=== PATIENT | female | born 1995 | race Caucasian/White ===

== ENCOUNTER 2016-02-09 10:55 | Emergency (ER) | payer OTHER ==
[2016-02-09 11:59] VITALS: BP 156/102
--- NOTE | 2016-02-09 13:06 | UC ---
Abdominal Pain Female HPI - HPI Summary HPI Summary: 1) suprapubic pain, pressure, and urinary frequency. Denies dysuria. 2) Missed period in January, took preg tests over the weekend and 1 of 4 was positive. Last control was depo shot, stopped in July. Pt is . 3) Vomited once about 1 week ago, has been feeling nauseated and bloated every since, with a low appetite. States bowel movements have been 1-2 x per day and normal. Having occasional pain on R side of umbilicus, last night was very bad, none currently. Pt is vague about symptoms and unable to give precise information about timing and frequency of symptoms. - History of Current Complaint Chief Complaint: UCGeneralIllness Stated Complaint: ABD PAIN Time Seen by Provider: 02/09/16 12:31 Hx Obtained From: Patient Hx Last Menstrual Period: december 2015 Onset/Duration: Gradual Onset, Lasting Days Timing: Constant Severity Initially: Mild Severity Currently: Mild Location: Diffuse, Suprapubic Radiates: No Character: Unable to describe Aggravating Factor(s): Other: - seems worse as day goes on Alleviating Factor(s): Nothing Associated Signs and Symptoms: Positive: Urinary Symptoms - frequency, Decreased Appetite, Nausea, Vomiting Allergies/Adverse Reactions: Allergies Allergy/AdvReac Type Severity Reaction Status Date / Time No Known Allergies Allergy Unverified 02/09/16 11:59 PMH/Surg Hx/FS Hx/Imm Hx Respiratory History Of: Reports: Asthma - childhood Psychological History Of: Reports: Depression - Surgical History Surgical History: None - Family History Known Family History: Positive: Other - M of "stomach cancer" - Social History Occupation: Employed Part-time Lives: With Family Alcohol Use: None Substance Use Type: None Smoking Status (MU): Former Smoker Type: Cigarettes - Immunization History Most Recent Influenza Vaccination: 11/20/13 Most Recent Tetanus Shot: 02/10/14 Most Recent Pneumonia Vaccination: none Vaccination Up to Date: Yes Review of Systems Constitutional: Negative Skin: Negative Eyes: Negative ENT: Negative Respiratory: Negative Cardiovascular: Negative Gastrointestinal: Abdominal Pain, Vomiting Genitourinary: Frequency, Urgency Motor: Negative Neurovascular: Negative Musculoskeletal: Negative Neurological: Negative Psychological: Negative All Other Systems Reviewed And Are Negative: Yes Physical Exam Triage Information Reviewed: Yes Appearance: Well-Appearing, No Pain Distress, Obese Vital Signs: Initial Vital Signs Temp 97.4 F 02/09/16 11:54 Pulse 90 02/09/16 11:54 Resp 20 02/09/16 11:54 BP 156/102 02/09/16 11:54 Pulse Ox 100 02/09/16 11:54 Vital Signs Reviewed: Yes Eye Exam: Normal Eyes: Positive: Conjunctiva Clear ENT Exam: Normal ENT: Positive: Normal ENT inspection, Hearing grossly normal, Pharynx normal, TMs normal Dental Exam: Normal Neck exam: Normal Neck: Positive: Supple, Nontender, No Lymphadenopathy Respiratory Exam: Normal Respiratory: Positive: Chest non-tender, Lungs clear, Normal breath sounds, No respiratory distress, No accessory muscle use Cardiovascular Exam: Normal Cardiovascular: Positive: RRR, No Murmur Abdomen Description: Positive: Soft, Other: - negative Duron's sign. Negative : Nontender - suprapubic tenderness, CVA Tenderness (R), CVA Tenderness (L), Distended, Guarding, McBurney's Point Tenderness Bowel Sounds: Positive: Present Musculoskeletal Exam: Normal Neurological Exam: Normal Psychological: Positive: Other: - flat affect Skin Exam: Normal Abd Pain Female Course/Dx - Differential Dx/Diagnosis Provider Diagnoses: UTI. amenorrhea. dyspepsia Discharge - Discharge Plan Condition: Stable Disposition: HOME Prescriptions: Cephalexin CAP* [Keflex 500 CAP*] 500 mg PO TID #15 cap Omeprazole CAP* [Prilosec CAP* 20 MG] 20 mg PO BEDTIME #15 cap. Ondansetron ODT TAB* [Zofran Odt TAB*] 4 mg PO Q8H PRN #10 tab.odt PRN Reason: Nausea Patient Education Materials: Indigestion (ED), Urinary Tract Infection in Women (ED) Referrals: Oma Jacobsen MD [Primary Care Provider] - 2 Weeks Additional Instructions: As we discussed, you have some symptoms and signs of a UTI. We won't know for sure until the culture comes back -- if it is negative, you can stop the antibiotics. For your nausea and stomach symptoms, take the omeprazole every day and use zofran as needed for more severe nausea. Focus on eating frequent small meals, and avoid overly greasy, spicy, or sugary foods. Please see Dr. Jacobsen in 10-14 days for a follow-up visit. If your symptoms are not improved, she may want to try different treatment or testing.
== END 2016-02-09 13:16 | disposition home or self-care (01) ==
LOC: UCEAST 10:55
DX: N39.0 Urinary tract infection, site not specified (principal); N91.2 Amenorrhea, unspecified; R10.13 Epigastric pain; Z87.891 Personal history of nicotine dependence
CPT/HCPCS: 36415; 81002; 81025; 84702; 87086; 99212; G0463

== ENCOUNTER 2016-05-23 14:41 | Emergency (ER) | payer MEDICAID ==
[2016-05-23 14:56] VITALS: BP 142/86
--- NOTE | 2016-05-23 15:23 | UC ---
Minor Trauma HPI - HPI Summary HPI Summary: 21 yo female feel down 2 stairs today initially felt fine about 40 minutes after the fall she had some crampy lower abd pain that felt like menstrual cramps here period is a week late she requests a serum HCG currently no pain - History of Current Complaint Chief Complaint: UCAbdominalPain Stated Complaint: FALL-ABD PAIN/POSS PREG Time Seen by Provider: 05/23/16 15:16 Hx Obtained From: Patient Hx Last Menstrual Period: 04/10/16 Onset/Duration: Gradual Onset, Lasting Minutes Onset Of Pain: Post Accident Severity Initially: Mild Severity Currently: None Pain Intensity: 0 Pain Scale Used: 0-10 Numeric Mechanism Of Injury: Fall From A Standing Position Aggravating Factor(s): Nothing Alleviating Factor(s): Nothing Associated Signs And Symptoms: Negative: Loss Of Consciousness, Ecchymosis, Swelling - Allergies/Home Medications Allergies/Adverse Reactions: Allergies Allergy/AdvReac Type Severity Reaction Status Date / Time No Known Allergies Allergy Verified 05/23/16 14:55 Home Medications: Home Medications NK [No Home Medications Reported] 05/23/16 [History Confirmed 05/23/16] PMH/Surg Hx/FS Hx/Imm Hx Previously Healthy: Yes Endocrine History Of: Denies: Diabetes, Thyroid Disease Cardiovascular History Of: Denies: Cardiac Disorders, Hypertension Respiratory History Of: Reports: Asthma - childhood Denies: COPD GI/ History Of: Denies: Ulcer Psychological History Of: Reports: Depression - Surgical History Surgical History: None - Family History Known Family History: Positive: Cardiac Disease, Hypertension, Diabetes, Other - M of "stomach cancer" - Social History Alcohol Use: None Substance Use Type: None Smoking Status (MU): Heavy Every Day Tobacco Smoker Type: Cigarettes Amount Used/How Often: 1ppd or less Have You Smoked in the Last Year: Yes - Immunization History Most Recent Influenza Vaccination: 11/20/13 Most Recent Tetanus Shot: 02/10/14 Most Recent Pneumonia Vaccination: none Vaccination Up to Date: Yes Review of Systems Constitutional: Negative Skin: Negative Eyes: Negative ENT: Negative Respiratory: Negative Cardiovascular: Negative Gastrointestinal: Abdominal Pain - intermittent Genitourinary: Negative Motor: Negative Neurovascular: Negative Musculoskeletal: Negative Neurological: Negative Psychological: Negative All Other Systems Reviewed And Are Negative: Yes Physical Exam Triage Information Reviewed: Yes Appearance: Well-Appearing, No Pain Distress, Well-Nourished Vital Signs: Initial Vital Signs Temp 97.6 F 05/23/16 14:46 Pulse 70 05/23/16 14:46 Resp 16 05/23/16 14:46 BP 142/86 05/23/16 14:46 Pulse Ox 100 05/23/16 14:46 Vital Signs Reviewed: Yes Eyes: Positive: Conjunctiva Clear ENT: Positive: Hearing grossly normal Dental: Negative: Gross Decay/Caries @, Dental Fracture @ Neck: Positive: Supple, Nontender, No Lymphadenopathy Respiratory: Positive: Lungs clear, Normal breath sounds, No respiratory distress Cardiovascular: Positive: RRR, No Murmur Abdomen Description: Positive: Nontender, No Organomegaly, Soft. Negative: CVA Tenderness (R), CVA Tenderness (L), Distended, Hepatomegaly, Peritoneal Signs, Pulsatile Mass, Splenomegaly Musculoskeletal: Positive: ROM Intact, No Edema Neurological: Positive: Alert, Muscle Tone Normal Psychological Exam: Normal Skin Exam: Normal Minor Trauma Course/Dx - Differential Dx/Diagnosis Provider Diagnoses: fall. currently no abdominal pain. missed period Discharge - Discharge Plan Condition: Stable Disposition: HOME Patient Education Materials: Abdominal Pain (ED) Referrals: Oma Kruse MD [Primary Care Provider] - 2 Weeks (your BP is high and needs rechecking) Additional Instructions: recheck for new or worsening symptoms recheck in 1-2 days if not completely better
== END 2016-05-23 15:46 | disposition home or self-care (01) ==
LOC: UCEAST 14:41
DX: R10.9 Unspecified abdominal pain (principal); N92.6 Irregular menstruation, unspecified
CPT/HCPCS: 36415; 81003; 84702; 87086; 99211; G0463

== ENCOUNTER 2016-11-05 13:20 | Emergency (ER) | payer SELFPAY ==
[2016-11-05] MEDS ORDERED: Metoclopramide IV* 5 MG/ML 2 ML VIAL IV ONE (14:06)
[2016-11-05 14:25] LABS: Hematocrit 43 % (35-47); Hemoglobin 14.7 g/dl (12.0-16.0); Mean Corpuscular HGB Conc 34 g/dl (31-36); Mean Corpuscular Hemoglobin 29 pg (27-31); Mean Corpuscular Volume 86 fL (80-97); Mean Platelet Volume 7 um3 (7.4-10.4); Red Blood Count 5.03 10^6/ul (4.0-5.4); Red Cell Distribution Width 13 % (10.5-15); White Blood Count 9.9 10^3/ul (3.5-10.8)
--- NOTE | 2016-11-05 14:32 | ED ---
- HPI Summary HPI Summary: 21F presents with nausea for past week and pelvic pain since yesterday. blood type a+. . does not know how many weeks is at as has had had period for 2 years after due to being on depo. stopped depo a year ago. denies any vaginal bleeding or discharge. Does not have obgyn as will not see here due to age. She admits to decrease in appetite and vomiting. She has history of hemorrhoids. She denies any diarrhea or constipation. she denies any pain with urination. no previous abdominal surgeries. she took 8 at home tests that all came back positive. she denies any fevers. - History of Current Complaint Chief Complaint: EDAbdPain Stated Complaint: ABD PAIN/UNABLE TO EAT Time Seen by Provider: 11/05/16 13:40 Pain Intensity: 4 - Assessment SAB: 0 IEA: 0 - Additional Pertinent History Maternal Blood Type and Rh: A Positive - Allergies/Home Medications Allergies/Adverse Reactions: Allergies Allergy/AdvReac Type Severity Reaction Status Date / Time No Known Allergies Allergy Verified 11/05/16 13:25 PMH/Surg Hx/FS Hx/Imm Hx Endocrine/Hematology History: Denies: Hx Diabetes, Hx Thyroid Disease Cardiovascular History: Denies: Hx Hypertension Respiratory History: Reports: Hx Asthma - childhood Denies: Hx Chronic Obstructive Pulmonary Disease (COPD) GI History: Denies: Hx Ulcer Psychiatric History: Reports: Hx Depression Infectious Disease History: No Infectious Disease History: Reports: Hx of Known/Suspected MRSA - arm - 4-5 yrs ago Denies: Hx Clostridium Difficile, Hx Hepatitis, Hx Human Immunodeficiency Virus (HIV), Hx Shingles, Hx Tuberculosis, Hx Known/Suspected VRE, Hx Known/ Suspected VRSA, History Other Infectious Disease, Traveled Outside the [place] in Last 30 Days - Family History Known Family History: Positive: Cardiac Disease, Hypertension, Diabetes, Other - M of "stomach cancer" - Social History Alcohol Use: None Substance Use Type: Reports: None Smoking Status (MU): Light Every Day Tobacco Smoker Type: Cigarettes Amount Used/How Often: 1ppd or less Have You Smoked in the Last Year: Yes Review of Systems Negative: Fever Negative: Cough Positive: Abdominal Pain, Vomiting, Nausea. Negative: Diarrhea All Other Systems Reviewed And Are Negative: Yes Physical Exam - Physical Exam Triage Information Reviewed: Yes Vital Signs Reviewed: Yes Appearance: Positive: Well-Appearing Skin: Positive: Warm, Dry Head/Face: Positive: Normal Head/Face Inspection Eyes: Positive: Normal, EOMI, MERCY, Conjunctiva Clear ENT: Positive: Normal ENT inspection, Pharynx normal, TMs normal Respiratory/Lung Sounds: Positive: Clear to Auscultation, Breath Sounds Present Cardiovascular: Positive: Normal, RRR Abdomen Description: Positive: Nontender, Soft Bowel Sounds: Positive: Present Musculoskeletal: Positive: Normal Neurological: Positive: Normal Diagnostics - Vital Signs Vital Signs Temp Pulse Resp BP Pulse Ox 11/05/16 13:22 97.4 F 67 14 141/71 100 - Laboratory Lab Results: Lab Results 11/05/16 Range/Units 14:14 WBC 9.9 (3.5-10.8) 10^3/ul RBC 5.03 (4.0-5.4) 10^6/ul Hgb 14.7 (12.0-16.0) g/dl Hct 43 (35-47) % MCV 86 (80-97) fL MCH 29 (27-31) pg MCHC 34 (31-36) g/dl RDW 13 (10.5-15) % Plt Count 172 (150-450) 10^3/ul MPV 7 L (7.4-10.4) um3 Neut % (Auto) 57.6 (38-83) % Lymph % (Auto) 34.4 (25-47) % [place] % (Auto) 6.6 (1-9) % Eos % (Auto) 0.8 (0-6) % Baso % (Auto) 0.6 (0-2) % Absolute Neuts (auto) 5.7 (1.5-7.7) 10^3/ul Absolute Lymphs (auto) 3.4 (1.0-4.8) 10^3/ul Absolute Monos (auto) 0.6 (0-0.8) 10^3/ul Absolute Eos (auto) 0.1 (0-0.6) 10^3/ul Absolute Basos (auto) 0.1 (0-0.2) 10^3/ul Absolute Nucleated RBC 0 10^3/ul Nucleated RBC % 0 Result Diagrams: 11/05/16 14:14 11/05/16 14:14 Lab Statement: Any lab studies that have been ordered have been reviewed, and results considered in the medical decision making process. - Ultrasound No standard instances Ultrasound Interpretation: Positive (See Comments) - IMPRESSION: 1. Intrauterine gestational sac at 5 weeks 4 days with identification of a yolk sac but without confirmation of pole. 2. Small perigestational bleed. 3. Thickened and complex echogenic material within the endometrial cavity of indeterminate significance (see above). 4. Suggest serial ultrasound follow-up and serial beta hCG evaluation for above findings. Ultrasound Interpretation Completed By: Radiologist Course/Dx - Course Course Of Treatment: 21F presents with nausea for past week and pelvic pain since yesterday. blood type a+. . does not know how many weeks is at as has had had period for 2 years after due to being on depo. stopped depo a year ago. denies any vaginal bleeding or discharge. Does not have obgyn as will not see here due to age. She admits to decrease in appetite and vomiting. She has history of hemorrhoids. She denies any diarrhea or constipation. she denies any pain with urination. no previous abdominal surgeries. she took 8 at home tests that all came back positive. she denies any fevers. on exam nontender abdomen. gave reglan and feeling better. wbc normal. u/a normal. hcg 9000. u/s shows gestional sac without pole with thicken and complex echogenic material could be molar . explained results with patient and that needs to follow up with obgyn for repeat hcg and u/s. gave medication for nausea. patient understands and agrees with plan. - Differential Diagnosis/HQI/PQRI: Spontaneous , Intrauterine , Other: - molar - Diagnoses Provider Diagnoses: Discharge - Discharge Plan Condition: Good Disposition: HOME Prescriptions: Doxylamine/Pyridoxine(NF) [Diclegis (NF)] 1 tab PO BEDTIME #20 tab Metoclopramide TAB* [Reglan TAB*] 5 mg PO Q6H PRN #15 tab PRN Reason: Nausea Patient Education Materials: First Trimester (ED) Referrals: Oma Kruse MD [Primary Care Provider] - Elisha Cotton MD [Medical Doctor] - Arnel London MD [Medical Doctor] - Additional Instructions: Follow up with OBGYN as will need repeat HCG level drawn to trend You have the potential for a miscarriage or a molar with this Take dicelgis one tablet at night if nausea not improving take one tablet in morning too Take reglan every 6 hours as needed for break through nausea Return to ED if develop severe abdominal pain, fever, severe bleeding with symptoms such as lightheadedness or any new or worsening symptoms
[2016-11-05 14:37] LABS: Urine Bilirubin Negative (Negative); Urine Glucose Negative (Negative); Urine Nitrite Negative (Negative)
[2016-11-05 14:47] LABS: Albumin 4.3 g/dL (3.2-5.2); BUN/Creatinine Ratio 14.5 (8-20); Calcium 9.6 mg/dL (8.6-10.3); EGFR African American 157.8 (>60); EGFR Non-African American 122.7 (>60); Globulin 3.6 g/dL (2-4); Potassium 3.9 mmol/L (3.5-5.0); Total Bilirubin 0.3 mg/dL (0.2-1.0); Total Protein 7.9 g/dL (6.4-8.9)
--- NOTE | 2016-11-05 16:02 | RAD ---
INDICATION: Early COMPARISON: None TECHNIQUE: Transvaginal scans were obtained for evaluation. FINDINGS: There is an intrauterine gestational sac with identification of a yolk sac but no pole. The gestational sac size corresponds to a 5 week 4 day gestation. There is a small. Gestational hemorrhage measuring approximately 0.8 x 0.3 cm. There are prominent echoes within the endometrial cavity. Doppler interrogation suggests some flow but this may largely represent hemorrhage. However, in the appropriate setting a molar would be a differential consideration. Suggest follow-up imaging and correlation with serial beta-hCGs. Imaging of the adnexal regions demonstrates normal ovaries. The right ovary measures 2.2 x 1.5 a 2.7 cm and left 3.6 x 2.1 x 2.9 cm. There is a presumed left-sided corpus luteal cyst measuring 1.7 cm IMPRESSION: 1. Intrauterine gestational sac at 5 weeks 4 days with identification of a yolk sac but without confirmation of pole. 2. Small perigestational bleed. 3. Thickened and complex echogenic material within the endometrial cavity of indeterminate significance (see above). 4. Suggest serial ultrasound follow-up and serial beta hCG evaluation for above findings.
[2016-11-05 16:24] VITALS: BP 107/60
== END 2016-11-05 16:39 | disposition home or self-care (01) ==
LOC: ED 13:20
DX: Z34.91 Encounter for supervision of normal pregnancy, unspecified, first trimester (principal); R10.2 Pelvic and perineal pain; F17.210 Nicotine dependence, cigarettes, uncomplicated; R11.2 Nausea with vomiting, unspecified
CPT/HCPCS: 36415; 76817; 80053; 81003; 83690; 84702; 85025; 86141; 96374; 99283; J2765

== ENCOUNTER 2017-06-29 08:40 | Inpatient (IN) | payer OTHER ==
[2017-06-29] MEDS ORDERED: Misoprostol TAB* 100 MCG VAGINAL ONE (09:35)
[2017-06-29] MEDS ORDERED: Misoprostol TAB* 100 MCG ONE (09:42)
[2017-06-29 11:22] LABS: ABS Basophils 0 10^3/ul (0-0.2); ABS Eosinophils 0 10^3/ul (0-0.6); ABS Lymphocytes 2.6 10^3/ul (1.0-4.8); ABS Monocytes 0.5 10^3/ul (0-0.8); ABS Neutrophils 5.8 10^3/ul (1.5-7.7); ABS Nucleated RBC 0 10^3/ul; Eosinophil % 0.5 % (0-6); Hematocrit 36 % (35-47); Hemoglobin 12.4 g/dl (12.0-16.0); Lymphocyte % 29.1 % (25-47); Mean Corpuscular HGB Conc 34 g/dl (31-36); Mean Corpuscular Hemoglobin 29 pg (27-31); Mean Corpuscular Volume 84 fL (80-97); Mean Platelet Volume 8.3 um3 (7.4-10.4); Nucleated Red Blood Cells % 0; Platelet Count 110 10^3/ul (150-450); Red Blood Count 4.31 10^6/ul (4.0-5.4); Red Cell Distribution Width 14 % (10.5-15); White Blood Count 9.1 10^3/ul (3.5-10.8)
--- NOTE | 2017-06-29 11:48 | HP ---
General Information - General Information Maternal Age: 22 Grav: 2 Para: 1 SAB: 0 IEA: 0 Estimated Due Date: 07/06/17 Determined By: Early Ultrasound Gestational Age in Weeks and Days: 39 Weeks and 0 Days Maternal Blood Type and Rh: A Positive - Results this Serology/RPR Result: Non-Reactive Rubella Result: Immune HBsAg Result: Negative HIV Result: Negative GBS Culture Result: Positive Past Medical History Delivery History: Hx Complicated Vaginal Delivery - hemorrhage Pertinent Past Medical History: See Records - asthma (no meds) Pertinent Past Surgical History: None Pertinent Family History: Non-Contributory - Antepartal Records Antepartal Records: Reviewed, Complicated by: - GDMA2 on insulin (4U NPH AM), mild thrombocytopenia Review of Systems Constitutional: Comfortable CV Complaint: No Respiratory: Shortness of Breath: No Gastrointestinal: No Nausea/Vomiting Genitourinary: No Dysuria, No Bleeding, No Leaking Fluid Musculoskeletal: No Complaint Neurological: No Headache Movement: Normal Exam Allergies/Adverse Reactions: Allergies No Known Allergies Allergy (Verified 11/05/16 13:25) 118/68, T97.5, P105, R18 Lab Values - Entire Visit: Laboratory Tests 06/29/17 06/29/17 10:10 11:09 WBC 9.1 RBC 4.31 Hgb 12.4 Hct 36 MCV 84 MCH 29 MCHC 34 RDW 14 Plt Count 110 L MPV 8.3 Neut % (Auto) 64.1 Lymph % (Auto) 29.1 [place] % (Auto) 5.8 Eos % (Auto) 0.5 Baso % (Auto) 0.5 Absolute Neuts (auto) 5.8 Absolute Lymphs (auto) 2.6 Absolute Monos (auto) 0.5 Absolute Eos (auto) 0 Absolute Basos (auto) 0 Absolute Nucleated RBC 0 Nucleated RBC % 0 Blood Type A Positive Antibody Screen Negative - Measurements Height: 5 ft 2 in Weight: 208 lb Weight in lbs: 208 Body Mass Index (BMI): 38.0 Pre- Weight: 156 lb Weight Gained This : 52 lbs and 0 ozs - Exam Abdomen: No Upper Quadrant Pain Breast: Breast Exam Deferred Heart: Normal Rhythm/Heart Sounds Lungs: Clear Bilaterally - Abdominal Exam Abdomen Exam: Non-Tender, Fundal Height Consistent with Dates - Ultrasound/Biophysical Profile Ultrasound Status: Not Done Targeted Exam Findings See L&D Outpatient Visit Provider Note for Findings: N/A Cervical Exam: 1cm Effacement: 50% Station: -2 Presenting Part: Vertex Membrane Status: Intact EFM Findings - External Monitor Findings Baseline Heart Rate: 130 External Monitor Findings: Accelerations Present, No Pattern of Variable or Late Decelerations, Variability Moderate Contractions: Irregular, Mild Contraction Frequency: Q6-10 Assessment/Plan - Reason for Visit Reason for Visit: 22yo at 39 wks with GDMA2, treated with small amt of NPH (4U QAM) here for induction of labor. - Obstetrical Risk Factors Obstetrical Risk Factors: Gestational Diabetes - Plan Plan: Induction - Plan to start with vaginal misoprostol. Will check BGs periodically and treat as needed.
[2017-06-29] MEDS ORDERED: Penicillin G Potassium IV* 5,000,000 UNITS in NS 0.9% 100 ML* 100 ML IVPB ONE (17:45)
[2017-06-29] MEDS: Oxytocin in LR* 20 UNITS/1,000 ML BAG IVPB SCH (17:59)
[2017-06-29] MEDS ORDERED: OBEPIDURAL* 250 ML EPIDURAL ONE (21:40)
[2017-06-29] MEDS ORDERED: fentaNYL* 50 MCG/ML 2 ML VIAL (100 MCG VIAL) ONE (21:54)
[2017-06-29] MEDS ORDERED: Sodium Citrate/Citric Acid* 15 ML UDC PO PRN (22:35)
[2017-06-29] MEDS ORDERED: Famotidine TAB* 20 MG PO PRN (22:35)
[2017-06-29] MEDS ORDERED: Phenylephrine IV* 40 MCG/ML 10 ML SYRINGE IV PUSH PRN ×2 (22:35)
[2017-06-29] MEDS ORDERED: OBEPIDURAL* 250 ML EPIDURAL SCH (23:00)
[2017-06-30] MEDS: Penicillin G Potassium IV* 2,500,000 UNITS in NS 0.9% 100 ML* 100 ML IVPB SCH ×5 (04:11→16:16)
[2017-06-30] MEDS: Oxytocin in LR* 20 UNITS/1,000 ML BAG IVPB SCH (13:13)
[2017-06-30] MEDS ORDERED: OBEPIDURAL* 250 ML EPIDURAL ONE (14:07)
[2017-06-30] MEDS ORDERED: Dibucaine 1% 28.35 GM TUBE PR PRN (19:07)
[2017-06-30] MEDS ORDERED: Varicella Virus Vaccine Live* 0.5 ML VIAL SUBCUT ONE (19:07)
[2017-06-30] MEDS ORDERED: Witch Hazel PAD* JAR TOPICAL PRN (19:07)
[2017-06-30] MEDS ORDERED: Glycerin ADULT SUPP PR PRN (19:07)
[2017-06-30] MEDS ORDERED: Oxytocin in LR* 20 UNITS/1,000 ML BAG IVPB SCH (20:00)
[2017-06-30] MEDS: Ibuprofen TAB* 600 MG PO PRN (20:08)
[2017-07-01] MEDS: Acetaminophen TAB* 325 MG PO PRN ×2 (00:25→06:03)
[2017-07-01] MEDS: Ibuprofen TAB* 600 MG PO PRN ×2 (03:05→09:43)
[2017-07-01 05:41] LABS: ABS Basophils 0.1 10^3/ul (0-0.2); ABS Eosinophils 0.1 10^3/ul (0-0.6); ABS Lymphocytes 3.6 10^3/ul (1.0-4.8); ABS Monocytes 0.8 10^3/ul (0-0.8); ABS Nucleated RBC 0 10^3/ul; Eosinophil % 0.6 % (0-6); Hematocrit 34 % (35-47); Hemoglobin 11.4 g/dl (12.0-16.0); Lymphocyte % 31.2 % (25-47); Mean Corpuscular HGB Conc 34 g/dl (31-36); Mean Corpuscular Hemoglobin 28 pg (27-31); Mean Corpuscular Volume 85 fL (80-97); Mean Platelet Volume 8.3 um3 (7.4-10.4); Nucleated Red Blood Cells % 0; Platelet Count 104 10^3/ul (150-450); Red Blood Count 4.02 10^6/ul (4.0-5.4); Red Cell Distribution Width 14 % (10.5-15); White Blood Count 11.5 10^3/ul (3.5-10.8)
[2017-07-01] MEDS ORDERED: Ferrous Gluconate TAB* 324 MG TAB PO SCH (09:00)
[2017-07-01] MEDS ORDERED: Ibuprofen TAB* 600 MG ONE (09:39)
[2017-07-01] MEDS: Docusate CAP* 100 MG PO SCH ×4 (09:43→21:28)
[2017-07-01] MEDS: Simethicone TAB* 80 MG TAB.CHEW PO SCH (16:20)
[2017-07-02 08:07] VITALS: BP 130/81
[2017-07-02] MEDS: Docusate CAP* 100 MG PO SCH (10:56)
== END 2017-07-02 11:09 | disposition home or self-care (01) | DRG 560 ==
LOC: MCHOBOUT 08:40 → MCHOB 09:41
PROVIDERS: ADMIT Obstetrics & Gynecology; ATTEND Obstetrics & Gynecology
PROC: 10E0XZZ Delivery of Products of Conception, External Approach (ICD-10-PCS; principal; 2017-06-30)
PROC: 3E033VJ Introduction of Other Hormone into Peripheral Vein, Percutaneous Approach (ICD-10-PCS; 2017-06-30)
PROC: 10907ZC Drainage of Amniotic Fluid, Therapeutic from Products of Conception, Via Natural or Artificial Opening (ICD-10-PCS; 2017-06-30)
PROC: 0KQM0ZZ Repair Perineum Muscle, Open Approach (ICD-10-PCS; 2017-06-30)
DX: O24.429 Gestational diabetes mellitus in childbirth, unspecified control (principal); O99.12 Other diseases of the blood and blood-forming organs and certain disorders involving the immune mechanism complicating childbirth; O99.824 Streptococcus B carrier state complicating childbirth; O70.1 Second degree perineal laceration during delivery; O69.81X0 Labor and delivery complicated by cord around neck, without compression, not applicable or unspecified; Z3A.39 39 weeks gestation of pregnancy; Z37.0 Single live birth
CPT/HCPCS: 36415; 85025; 86850; 86900; 86901; A9270-GY; J2540; J3010; S0191

== ENCOUNTER 2018-03-18 15:07 | Emergency (ER) | payer BC, OTHER ==
[2018-03-18 15:20] VITALS: BP 132/94
--- NOTE | 2018-03-18 15:57 | UC ---
Throat Pain/Nasal Crow HPI - HPI Summary HPI Summary: started 1 weeks ago with URI symps. yesterday started to have ST and fever. - History of Current Complaint Chief Complaint: UCGeneralIllness Stated Complaint: THROAT PAIN RESP Time Seen by Provider: 03/18/18 15:36 Hx Obtained From: Patient Hx Last Menstrual Period: unsure, not , post since 2018 ?: No Onset/Duration: Gradual Onset Severity: Moderate Pain Intensity: 6 Cough: Sputum Appears - green Associated Signs & Symptoms: Positive: Fever - Allergies/Home Medications Allergies/Adverse Reactions: Allergies Allergy/AdvReac Type Severity Reaction Status Date / Time amoxicillin Allergy Mild Rash Verified 03/18/18 15:20 PMH/Surg Hx/FS Hx/Imm Hx Previously Healthy: Yes - Surgical History Surgical History: None - Family History Known Family History: Positive: Cardiac Disease, Hypertension, Diabetes, Other - M of "stomach cancer" - Social History Occupation: Employed Full-time - school Lives: With Family Alcohol Use: None Substance Use Type: None Smoking Status (MU): Light Every Day Tobacco Smoker Type: Cigarettes Amount Used/How Often: 1ppd or less Have You Smoked in the Last Year: Yes Household Exposure Type: Cigarettes Cessation Counseling: Patient Advised to Stop - Immunization History Most Recent Influenza Vaccination: 11/20/13 Most Recent Tetanus Shot: 02/10/14 Most Recent Pneumonia Vaccination: none Vaccination Up to Date: Yes Review of Systems All Other Systems Reviewed And Are Negative: Yes Constitutional: Positive: Fatigue Eyes: Positive: Negative ENT: Positive: Sore Throat, Sinus Congestion. Negative: Ear Ache Respiratory: Positive: Cough Cardiovascular: Positive: Negative Gastrointestinal: Positive: Negative Neurological: Positive: Negative. Negative: Headache Psychological: Positive: Negative Is Patient Immunocompromised?: No Physical Exam Triage Information Reviewed: Yes Appearance: Well-Appearing, No Pain Distress, Obese Vital Signs: Initial Vital Signs Temp 98.2 F 03/18/18 15:13 Pulse 86 03/18/18 15:13 Resp 16 03/18/18 15:13 BP 132/94 03/18/18 15:13 Pulse Ox 99 03/18/18 15:13 Vital Signs Reviewed: Yes Eyes: Positive: Conjunctiva Clear ENT: Positive: Pharyngeal erythema, Nasal congestion, TMs normal Neck exam: Normal Respiratory Exam: Normal Respiratory: Positive: Lungs clear Cardiovascular Exam: Normal Cardiovascular: Positive: RRR Neurological Exam: Normal Psychological Exam: Normal Skin Exam: Normal Skin: Negative: Rashes Throat Pain/Nasal Course/Dx - Differential Dx/Diagnosis Differential Diagnosis/HQI/PQRI: Influenza, Pharyngitis, Sinusitis, Tonsillitis , URI Provider Diagnosis: URI (upper respiratory infection) Discharge - Sign-Out/Discharge Documenting (check all that apply): Patient Departure All imaging exams completed and their final reports reviewed: No Studies - Discharge Plan Condition: Good Disposition: HOME Prescriptions: Azithromycin TAB* [Zithromax TAB (Z-YOLANDE) 250 mg #6 tabs] 2 tab PO .TODAY, THEN 1 DAILY #1 yolande Azithromycin TAB* [Zithromax TAB (Z-YOLANDE) 250 mg #6 tabs] 2 tab PO .TODAY, THEN 1 DAILY #1 yolande Patient Education Materials: Pharyngitis (ED) Forms: *Work Release Referrals: Oma Kruse MD [Primary Care Provider] - 2 Days (if no better) Additional Instructions: rest, drink plenty of fluids take meds as prescribed - Billing Disposition and Condition Condition: GOOD Disposition: Home
== END 2018-03-18 16:10 | disposition home or self-care (01) ==
LOC: UCEAST 15:07
DX: J06.9 Acute upper respiratory infection, unspecified (principal); F17.210 Nicotine dependence, cigarettes, uncomplicated; Z88.0 Allergy status to penicillin
CPT/HCPCS: 87651; 99212; G0463

== ENCOUNTER 2018-04-26 17:47 | Emergency (ER) | payer BC, OTHER ==
--- NOTE | 2018-04-26 17:57 | UC ---
Throat Pain/Nasal Crow HPI - HPI Summary HPI Summary: 23 y/o female presents to the urgent care c/o sore throat, low grade fever, nasal congestion w/ clear nasal discharge for the past 4 days. Pt had fever of 101F yesterday. She has taken Tylenol PO and Ibuprofen PO to alleviate symptoms. Pain w/ swallowing is 2/. However, this morning when she woke up sore throat was worse like 8/. She was seen here for URI in 03/18 and strep was negative. Pt denies SOB, respiratory distress, difficulty breathing, abdominal pain, chest pain, N/V/D, dizziness. Pt is UTD w/ all vaccines for her age. - History of Current Complaint Stated Complaint: SORE THROAT Time Seen by Provider: 04/26/18 17:55 Hx Obtained From: Patient Hx Last Menstrual Period: unsure, not , post since 2018 ?: No Onset/Duration: Gradual Onset, Lasting Days - 4 days, Still Present, Worse Since - today Severity: Moderate Pain Intensity: 2 Pain Scale Used: 0-10 Numeric Cough: Nonproductive Associated Signs & Symptoms: Positive: Dysphagia - mild, Sinus Discomfort, Nasal Discharge, Fever. Negative: Drooling, Wheezing - Epiglottits Risk Factors Epiglottis Risk Factors: Negative - Allergies/Home Medications Allergies/Adverse Reactions: Allergies Allergy/AdvReac Type Severity Reaction Status Date / Time amoxicillin Allergy Mild Rash Verified 04/26/18 18:07 PMH/Surg Hx/FS Hx/Imm Hx Previously Healthy: Yes Respiratory History: Asthma - Surgical History Surgical History: None - Family History Known Family History: Positive: Cardiac Disease, Hypertension, Diabetes, Other - M of "stomach cancer" - Social History Occupation: Employed Full-time Lives: With Family Alcohol Use: None Substance Use Type: None Smoking Status (MU): Light Every Day Tobacco Smoker Type: Cigarettes Amount Used/How Often: 1ppd or less Have You Smoked in the Last Year: Yes Household Exposure Type: Cigarettes - Immunization History Most Recent Influenza Vaccination: 11/20/13 Most Recent Tetanus Shot: 02/10/14 Most Recent Pneumonia Vaccination: none Vaccination Up to Date: Yes Review of Systems All Other Systems Reviewed And Are Negative: Yes Constitutional: Positive: Fever Skin: Positive: Negative Eyes: Positive: Negative ENT: Positive: Sore Throat, Nasal Discharge - clear, Sinus Congestion Respiratory: Positive: Cough - dry Cardiovascular: Positive: Negative Gastrointestinal: Positive: Negative Genitourinary: Positive: Negative Motor: Positive: Negative Neurovascular: Positive: Negative Musculoskeletal: Positive: Negative Neurological: Positive: Negative Psychological: Positive: Negative Is Patient Immunocompromised?: No Physical Exam - Summary Physical Exam Summary: VITAL SIGNS: Reviewed. GENERAL: Patient is a well developed and nourished female who is sitting comfortable in the examining table. Patient is not in any acute respiratory distress. HEAD AND FACE: No signs of trauma. No ecchymosis, hematomas or skull depressions. No sinus tenderness. EYES: PERRLA, EOMI x 2, No injected conjunctiva, no nystagmus. No photophobia. EARS: Hearing grossly intact. Ear canals and tympanic membranes are within normal limits. MOUTH: Positive pharynx with erythema, exudates, palatal petechiae. B/L tonsillar enlargement with no exudate. Uvula in midline. NECK: Supple, trachea is midline, Positive anterior cervical lymphadenopathy, no JVD, no carotid bruit, no c-spine tenderness, neck with full ROM. No meningeal signs, no Kernig's or brudzinskis signs. CHEST: Symmetric, no tenderness at palpation LUNGS: Clear to auscultation bilaterally. No wheezing or crackles. CVS: Regular rate and rhythm, S1 and S2 present, no murmurs or gallops appreciated. ABDOMEN: Soft, non-tender. No signs of distention. No rebound no guarding, and no masses palpated. Bowel sounds are normal. EXTREMITIES: FROM in all major joints, no edema, no cyanosis or clubbing. NEURO: Alert and oriented x 3. No acute neurological deficits. Speech is normal and follows commands. SKIN: Dry and warm Triage Information Reviewed: Yes Throat Pain/Nasal Course/Dx - Course Course Of Treatment: 23 y/o female presents to the urgent care c/o sore throat, low grade fever, nasal congestion w/ clear nasal discharge for the past 4 days. Pt had fever of 101F yesterday. She has taken Tylenol PO and Ibuprofen PO to alleviate symptoms. Pain w/ swallowing is 2/10. However, this morning when she woke up sore throat was worse like 8/10. She was seen here for URI in 03/18 and strep was negative. Pt denies SOB,wheezing, respiratory distress, difficulty breathing , abdominal pain, chest pain, N/V/D, dizziness. Pt is UTD w/ all vaccines for her age. Pt is PCN allergic and PMHX of asthma. Pt w/ pharyngitis on examination. Rapid strep: negative. Influenza A&b: negative. Monospot, CBc and throat culture ordered and sent to lab to r/o any abnormality. Pt will be notified of results. Pt Rx Prednisone and Ibuprofen PO of pain and swelling. Advised on hand washing to avoid spreading. Pt advised to rest, eat well and avoid strenuous exercise. Strongly advised if swelling worsen despite medications to go immediately to the ER for further management.If symptoms do not improve, advised to return to the urgent care or f/u with her PCP for further evaluation and treatment. Pt understood and agreed w/ plan of care - Differential Dx/Diagnosis Differential Diagnosis/HQI/PQRI: Influenza, Laryngitis, Mononucleosis, Otitis Media, Peritonsillar Abscess, Pharyngitis, Tonsillitis, URI Provider Diagnosis: Acute viral pharyngitis Discharge - Sign-Out/Discharge Documenting (check all that apply): Patient Departure - D/C home All imaging exams completed and their final reports reviewed: No Studies - Discharge Plan Condition: Stable Disposition: HOME Prescriptions: Ibuprofen TAB* [Motrin TAB* 600 MG] 600 mg PO Q6H PRN #30 tab PRN Reason: Sore Throat predniSONE TAB* [Deltasone 20 MG TAB*] 20 mg PO DAILY #11 tab Patient Education Materials: Pharyngitis (ED) Referrals: Lore Oviedo MD [Primary Care Provider] - Additional Instructions: 1- Please take Prednsine PO taper dose as directed to alleviate swelling and symptoms. 2- Rapid strep negative. Monospot and throat culture was send to lab to r/o any abnormality. You will be notified of the results for further management 3-Please take ibuprofen PO q6-8hrs prn as instructed after meals to alleviate pain and swelling. Increase fluid intake, eat well, rest and avoid strenuous exercise 4-If symptoms do not improve or worsen please return to the urgent care or f/u with your PCP for further evaluation and treatment. 5- If your symptoms worsen and you develop hoarseness, fever, or difficulty breathing, drooling please go immediately to the ER for further management - Billing Disposition and Condition Condition: STABLE Disposition: Home
[2018-04-26 18:17] VITALS: BP 129/85
[2018-04-27 11:22] LABS: ABS Basophils 0.1 10^3/ul (0-0.2); ABS Eosinophils 0.1 10^3/ul (0-0.6); ABS Lymphocytes 2.9 10^3/ul (1.0-4.8); ABS Monocytes 0.6 10^3/ul (0-0.8); ABS Nucleated RBC 0 10^3/ul; Eosinophil % 1.7 %; Hematocrit 41 % (33-41); Hemoglobin 13.7 g/dL (12.0-16.0); Lymphocyte % 37.6 %; Mean Corpuscular HGB Conc 33 g/dL (31-36); Mean Corpuscular Hemoglobin 28 pg (27-31); Mean Corpuscular Volume 84 fL (80-97); Mean Platelet Volume 8.5 fL (7.4-10.4); Nucleated Red Blood Cells % 0.1; Platelet Count 167 10^3/uL (150-450); Red Blood Count 4.89 10^6 /uL (3.70-4.87); Red Cell Distribution Width 13 % (10.5-15); White Blood Count 7.7 10^3/uL (3.5-10.8)
[2018-04-28 15:20] LABS: EBV Capsid Ag IgG Ab Positive (Negative); EBV Capsid Ag IgM Ab Negative (Negative); Epstein-Barr Nuclear Antigen Positive (Negative)
== END 2018-04-26 19:01 | disposition home or self-care (01) ==
LOC: UCEAST 17:47
DX: J02.9 Acute pharyngitis, unspecified (principal); F17.210 Nicotine dependence, cigarettes, uncomplicated; J45.909 Unspecified asthma, uncomplicated; Z88.0 Allergy status to penicillin
CPT/HCPCS: 36415; 85025; 86308; 86664; 86665; 87070; 87651; 99212; G0463

== ENCOUNTER 2018-06-20 19:09 | Emergency (ER) | payer BC, MEDICAID, OTHER ==
[2018-06-20 19:44] VITALS: BP 140/82
[2018-06-20] MEDS ORDERED: Silver Sulfadiazine 1%* 20 GM TOPICAL ONE (20:01)
[2018-06-20] MEDS ORDERED: Tetan/Diph/Pertus SYR(Tdap)* 0.5 ML SYR(BOOSTRIX) use SYR IM ONE (20:01)
[2018-06-20] MEDS ORDERED: Ibuprofen TAB* 600 MG PO ONE (20:03)
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
[2018-06-20] MEDS ORDERED: Sulfamethox/Trimethoprim DS 800/160* TAB PO ONE (20:48)
== END 2018-06-20 21:12 | disposition home or self-care (01) ==
LOC: UCEAST 19:09
DX: T25.121A Burn of first degree of right foot, initial encounter (principal); T24.101A Burn of first degree of unspecified site of right lower limb, except ankle and foot, initial encounter; T31.0 Burns involving less than 10% of body surface; X10.2XXA Contact with fats and cooking oils, initial encounter; Y93.G3 Activity, cooking and baking; Y92.000 Kitchen of unspecified non-institutional (private) residence as the place of occurrence of the external cause; Z23 Encounter for immunization; R03.0 Elevated blood-pressure reading, without diagnosis of hypertension; Z86.14 Personal history of Methicillin resistant Staphylococcus aureus infection; Z88.0 Allergy status to penicillin; F17.210 Nicotine dependence, cigarettes, uncomplicated
CPT/HCPCS: 16000; 90471; 90715; 99213; A9270-GY; G0463

== ENCOUNTER 2022-09-29 08:19 | Inpatient (IN) ==
[2022-09-29] MEDS ORDERED: Buffered Lidocaine 1% SYRIN 1 ml INTRADERM ONE (09:25)
[2022-09-29] MEDS ORDERED: Oxytocin in LR 20,000 MILLI.UNIT/1,000 ML BAG IV SCH (09:25)
[2022-09-29] MEDS ORDERED: Penicillin G Potassium IV 5,000,000 UNITS in NS 0.9% 100 ml BAG 100 ML IVPB ONE (09:25)
[2022-09-29] MEDS ORDERED: Lactated Ringers 1000 ml BAG 1,000 ML IV ONE ×2 (09:25→16:44)
[2022-09-29] MEDS ORDERED: Lidocaine 1% VIAL 10 MG/ML 30 ML VIAL INJ PRN (09:25)
[2022-09-29] MEDS ORDERED: Lactated Ringers 1000 ml BAG 1,000 ML IV SCH ×2 (10:00→17:00)
[2022-09-29 10:07] LABS: ABS Eosinophils 0.1 10^3/uL (0.0-0.5); ABS Lymphocytes 2.4 10^3/uL (1.0-4.8); ABS Monocytes 0.8 10^3/uL (0.0-0.9); ABS Neutrophils 5.6 10^3/uL (1.5-7.6); ABS Nucleated RBC 0.04 10^3/ul; Eosinophil % 1.2 %; Hemoglobin 12.6 g/dL (11.5-14.3); Lymphocyte % 26.7 %; Mean Corpuscular Hemoglobin 30.9 pg (27-33); Mean Corpuscular Hgb Conc 34.9 g/dL (31-36); Mean Corpuscular Volume 88.6 fL (80-97); Mean Platelet Volume 7.9 fL (7.5-11.2); Nucleated Red Blood Cells % 0.5 /100 WBC (0.0-0.4); Platelet Count 113 10^3/uL (150-450); Red Blood Count 4.07 10^6/uL (3.63-4.92); Red Cell Distribution Width 12.7 % (12-17); White Blood Count 8.9 10^3/uL (3.8-11.8)
[2022-09-29 10:37] LABS: Urine Benzodiazepine Screen None Detected (None Detect); Urine Cannabinoids Screen None Detected (None Detect); Urine Opiates Screen None Detected (None Detect)
[2022-09-29] MEDS ORDERED: OBEPIDURAL (200 ML) 200 ML EPIDURAL ONE (16:03)
[2022-09-29] MEDS ORDERED: Lidocaine 1.5% EPI 1:200,000 30 ML SDV ONE (16:03)
[2022-09-29] MEDS ORDERED: Bupivacaine 0.25% SDV PF 10 ML VIAL INJ ONE ×2 (16:20→16:22)
[2022-09-29] MEDS ORDERED: Phenylephrine 40 mcg/mL 10mL (400mcg) SYRINGE IV PUSH PRN (16:44)
[2022-09-29] MEDS ORDERED: OBEPIDURAL (200 ML) 200 ML EPIDURAL SCH (17:00)
[2022-09-29] MEDS: Phenylephrine 40 mcg/mL 10mL (400mcg) SYRINGE IV PUSH PRN ×2 (17:24→17:46)
[2022-09-29] MEDS: Penicillin G Potassium IV 3,000,000 UNITS in NS 0.9% 100 ml BAG 100 ML IVPB SCH ×2 (17:24→21:23)
[2022-09-29 17:46] LABS: Urine Appearance Clear; Urine Bilirubin Negative (Negative); Urine Blood Negative (Negative); Urine Color Straw; Urine Glucose Negative (Negative); Urine Ketones Negative (Negative); Urine Nitrite Negative (Negative); Urine Protein Negative (Negative); Urine Specific Gravity 1.004 (1.002-1.030); Urine Urobilinogen Negative (Negative)
[2022-09-30] MEDS: Penicillin G Potassium IV 3,000,000 UNITS in NS 0.9% 100 ml BAG 100 ML IVPB SCH (00:33)
[2022-09-30] MEDS ORDERED: Measles, Mumps,Rubella VACC 0.5 ML/VIAL SUBCUT ONE (02:58)
[2022-09-30] MEDS ORDERED: Varicella Virus Vaccine Live 0.5 ML VIAL SUBCUT ONE (02:58)
[2022-09-30] MEDS ORDERED: Glycerin ADULT 2.4 gm SUPP PR PRN (02:58)
[2022-09-30] MEDS ORDERED: Oxytocin in LR 20,000 MILLI.UNIT/1,000 ML BAG IV SCH (03:00)
[2022-09-30] MEDS: Witch Hazel PAD JAR TOPICAL PRN (04:16)
[2022-09-30] MEDS: Dibucaine 1% OINT 28.35 GM TUBE PR PRN (04:16)
[2022-10-01] MEDS: Penicillin G Potassium IV 3,000,000 UNITS in NS 0.9% 100 ml BAG 100 ML IVPB SCH (07:49)
[2022-10-01 08:06] LABS: ABS Eosinophils 0.1 10^3/uL (0.0-0.5); ABS Lymphocytes 2.8 10^3/uL (1.0-4.8); ABS Monocytes 0.5 10^3/uL (0.0-0.9); ABS Neutrophils 4.1 10^3/uL (1.5-7.6); Eosinophil % 1.9 %; Hemoglobin 11.4 g/dL (11.5-14.3); Lymphocyte % 37.1 %; Mean Corpuscular Hemoglobin 31.7 pg (27-33); Mean Corpuscular Hgb Conc 35.7 g/dL (31-36); Mean Corpuscular Volume 88.7 fL (80-97); Mean Platelet Volume 7.3 fL (7.5-11.2); Platelet Count 128 10^3/uL (150-450); Red Blood Count 3.61 10^6/uL (3.63-4.92); Red Cell Distribution Width 12.6 % (12-17); White Blood Count 7.7 10^3/uL (3.8-11.8)
[2022-10-01] MEDS: Witch Hazel PAD JAR TOPICAL PRN ×2 (09:45→19:54)
[2022-10-02] MEDS: Witch Hazel PAD JAR TOPICAL PRN (03:29)
[2022-10-02] MEDS: Dibucaine 1% OINT 28.35 GM TUBE PR PRN (03:29)
[2022-10-02 07:48] VITALS: BP 125/79
== END 2022-10-02 10:46 | disposition home or self-care (01) | DRG 560 ==
LOC: MCHOBOUT 08:19 → MCHOB 09:26
PROVIDERS: ADMIT Midwife; ATTEND Midwife